=== PATIENT | female | born 1970 | race Caucasian/White ===

== ENCOUNTER 2020-07-31 13:49 | Emergency (ER) | payer OTHER ==
--- OUTSIDE RECORDS SUMMARY | 2020-07-31 13:53 | XMS REPORT | Continuity of Care Document ---
:1970 Author Organization [facility] t Address [address] [place] [address] Care Team Providers Name Role Phone Lisset Jaffe MD Primary Care Physician Lisset Jaffe MD Attending Clinician Marge Wu MD Attending Clinician Emma DIXON Attending Clinician Junior Bartlett Attending Clinician Salvador Johnston Jr Attending Clinician Payers Payer Name Policy Type Policy Effective Date Expiration Date Sour Number CIGNACIGNA OPEN [id number] 2020 [place] ACCESS/NETWORKxx 00:00:00 Methodis t [id number] 1-[id number] Problems Condition Condition Condition Status Onset Resolution Last Treating Co mments Source Name Details Category Date Date Treatment Clinician Date Z41.1 Diagnosis Active 2018-05-15 Mem oria 2-26 11:27:00 l Z41.1 00:00: Hai 00 Active 05/08/2018 [facility] Anxiety Anxiety Disease Active [place] 7 Methodi 00:00: st 00 Palpitatio Palpitatio Disease Active H chiquita ns ns 3-22 Methodi 00:00: st 00 Hair loss Hair loss Disease Active Shlomo ston 3-22 Methodi 00:00: st 00 Generalize Generalize Disease Active H chiquita d d 1-19 Methodi abdominal abdominal 00:00: st cramping cramping 00 Anxiety Anxiety Disease Active [place] and and 03-31 Methodi depression depression 00:00: st 00 Other Other Disease Active [place] insomnia insomnia 03-31 Method i 00:00: st 00 Migraine Migraine Disease Active [place] without without 03-31 Methodi aura and aura and 00:00: st without without 00 status status migrainosu migrainosu s, not s, not intractabl intractabl e e Atypical Atypical Disease Active [place] chest pain chest pain 10-13 Me thodi 00:00: st 00 Amenorrhea Amenorrhea Disease Active [place] 10-13 Methodi 00:00: st 00 Muscle Muscle Disease Active [place] spasm spasm 10-13 Methodi 00:00: st 00 Ectopic Problem Resolve 2020-05-10 Mem oria d 23:03:26 l (disorder) Ectopic Her lazo (disorder) Resolved Problem 05/10/2020 [facility] Acute Problem Active 2018-05-17 Memor ia insomnia 23:46:05 l Acute [place] insomnia Active Problem 05/17/2018 [facility] Hypothyroi Problem Active 2018-05-17 M emoria dism 23:46:05 l (disorder) Maximino n Hypothyroi dism (disorder) Active Problem 05/17/2018 [facility] Cervical Problem Active 2020-05-10 Mem oria disc 23:03:26 l disorder Cervical Herm maxim (disorder) disc disorder (disorder) Active Problem 05/10/2020 from traum 2013 [facility] Gastroesop Problem Active 2020-05-10 M emoria hageal 23:03:26 l reflux Hai disease Gastroesop (disorder) hageal reflux disease (disorder) Active Problem 05/10/2020 [facility] Idiopathic Problem Active 2020-05-10 M emoria atrophic 23:03:26 l hypothyroi Maximino n dism Idiopathic (disorder) atrophic hypothyroi dism (disorder) Active Problem 05/10/2020 [facility] Primary Problem Active 2020-05-10 Ronald constance insomnia 23:03:26 l (disorder) Primary Her lazo insomnia (disorder) Active Problem 05/10/2020 [facility] Allergies, Adverse Reactions, Alerts Allergy Allergy Status Severity Reaction(s) Onset Inactive Treating Comm ents Source Name Type Date Date Clinician NKFA NKFA Active Memoria l Hai No Known No Known Active Memori a Medicati Medicati l on on Haimaxim Cristina s s Family History Family Member Diagnosis Comments Start Date Stop Date Source Natural father Diabetes [place] [facility] Natural father Heart attack [place] Denominational Natural father Hypertension [place] Denominational Natural father Hypothyroidism [place] Natural mother COPD [place] [facility] Natural mother Heart attack [place] [facility]ational Natural mother Hypertension [facility] Social History Social Habit Start Date Stop Date Quantity Comments Source Exposure to Not sure [place] Metho dist SARS-CoV-2 (event) Tobacco use and 2020-06-17 2020-06-17 Never used Kamlesh Day ethodist exposure 00:00:00 00:00:00 Alcohol intake 2020-06-17 2020-06-17 Current drinker [place] Denominational 00:00:00 00:00:00 of alcohol (finding) Social History 2018-05-09 2018-05-09 [facility] Nadja jayant 17:29:37 17:29:37 Alcohol Comment 2016-09-28 2016-09-28 Soc Kamlesh Day ethodist 00:00:00 00:00:00 Sex [birth year] F Kamlesh Day ethodist 00:00:00 00:00:00 Smoking Status Start Date Stop Date Source Never smoker [place] [facility] Medications Ordered Filled Start Stop Current Ordering Indication Dosage Frequency Signature Comments Components Source Medication Medication Date Date Medication? Clinician (SIG) Name Name terbinafine 2020- Yes Fungal 250mg QD Take 1 [place] HCL 5-11 06-10 infection tablet Methodi (LamiSIL) 00:00: 23:59 ([address] 250 mg 00 :00 total) by tablet mouth daily for 30 days. traZODone Yes Primary 100mg QD Take 1 [place] (DESYREL) 4-26 insomnia tablet Meth joy 100 MG 00:00: ([address] tablet 00 total) by mouth nightly. QUEtiapine Yes 25mg QD Take 1 [place] (SEROquel) 4-26 tablet (25 Met hodi 25 MG 00:00: mg total) st tablet 00 by mouth nightly. iron fum,ps 2021-0 Yes Iron 1{capsu QD Take 1 H chiquita cmplx-vit 4-26 deficiency le} capsule by Methodi C-niacin 00:00: mouth st (Integra) 00 daily. 125-40-3 mg capsule ibuprofen 2020- No 400mg Q6H Take 400 [place] (ADVIL) 400 06-17- mg by Method i MG tablet 11:18: 00:[address] 22 :00 every 6 (six) hours as needed for mild pain. mv,Ca,min/i Yes Take by Shlomo perez rita/FA/guar 06-17 mouth. Method i nata/caff 10:57: st (ONE-A-DAY 04 WOMEN'S ACTIVE ORAL) clotrimazol Yes Rash APPLY TO Hugh nixon e-betametha 06-17 AFFECTED Meth joy sone 00:00: AREA TWICE st (LOTRISONE) 00 A DAY 1-0.05 % cream varicella-z 2020- No Encounter .5mL Inject 0.5 [place] nikhil 06-17 for mL into Methodi [id number], 00:00: 23:[address] PF, 00 :00 n shoulder, (Shingrix, thigh, or PF,) 50 buttocks mcg/0.5 mL once for 1 suspension dose. for reconstitut ion IM injection clotrimazol 2020- No Rash APPLY TO [place] e-betametha 06-02 AFFECTED Met hodi sone 00:00: 00:[address] (LOTRISONE) 00 :00 A DAY 1-0.05 % cream acyclovir 2020- No 800mg Q.5D Take 800 Ho huss[place] (ZOVIRAX) 3- 03-17 mg by Methodi 800 MG 12:07: 00:[address] tablet 03 :00 (two) times a day. lamoTRIgine 2021- Yes Mood 25mg QD Take 1 Shlomo perez (LaMICtaL) 3-17 03-17 disturbance tablet (25 Methodi 25 MG 00:00: 23:59 mg total) st tablet 00 :00 by mouth daily. pregabalin 2020- Yes Nerve pain 75mg QD Take 1 Kamlesh (Lyrica) 75 05-27-15 capsule Meth joy MG capsule 00:00: 23:59 ([address] 00 :00 total) by mouth nightly for 90 days. valACYclovi 2020- No Rash 1000mg QD Take 1 H chiquita gay (Valtrex) 05-27-07 tablet Metho di 1000 MG 00:00: 00:00 (1,[address] tablet 00 :00 total) by mouth daily for 90 days. doxycycline 2020- No Rash 100mg Q.5D Take 1 Hugh nixon (VIBRAMYCIN 05-27 capsule Meth joy ) 100 MG 00:00: 23:59 ([address] capsule 00 :00 total) by mouth 2 (two) times a day for 10 days. clotrimazol 2020- No Rash Q.5D Apply [facility] e-betametha 05-27 topically Ga tanner cruze 00:00: 00:00 2 (two) st (Lotrisone) 00 :00 times a 1-0.05 % day. cream tobramycin- 2020- No Abrasion of 1[drp] Q.2D Administer [place] dexamethaso 05-27 right 1 drop to Shay jacobs 00:00: 23:[address] (TOBRADEX) 00 :00 , initial eye every 0.3-0.1 % encounter 4 (four) ophthalmic hours solution while awake for 5 days. ibuprofen Yes TAKE 1 Raynato n (ADVIL) 600 3-12 TABLET Method i MG tablet 00:00: (ORAL) 3 st 00 TIMES PER DAY NEEDED FOR PAIN triamcinolo 2020- No Irritant Q.5D Apply [place] ne 05-12 contact topically Method i (KENALOG) 00:00: 00:00 dermatitis, 2 (two) st 0.025 % 00 :00 unspecified times a cream trigger day for 14 days. Integra 2020- No Iron TAKE 1 [place] 125-40-3 mg 03-27 deficiency CAPSULE BY Methodi capsule 00:00: 00:[address] 00 :00 EVERY DAY Integra 2020- No Iron TAKE 1 [place] 125-40-3 mg 09-15 deficiency CAPSULE BY Methodi capsule 00:00: 00:[address] 00 :00 DAILY FOR 90 DAYS. levothyroxi Yes 50 Memori a ne 50 mcg 2-21 microgram l (0.05 mg) 19:37: = 1 tab, Herm maxim oral tablet 00 PO, QAM, taking with plain water on empty stomach. wait 30 minutes before any other food, drinks, or pills, # 90 tab, 4 Refill(s), Pharmacy: [facility] #[id number] Trazodone 0 Yes 100 mg = 1 Me moria Hydrochlori 2-21 tab, PO, l de 100 MG 19:37: Bedtime, Herm maxim Oral Tablet 00 for sleep, # 90 tab, 4 Refill(s), Pharmacy: [facility] #[id number] QUEtiapine Yes 25 mg = 1 Me moria 25 mg oral 2-21 tab, PO, l tablet 19:37: Bedtime, # Cecily nn 00 90 tab, 4 Refill(s), Pharmacy: [facility] #[id number] 1.5 ML Yes SUB-Q, Memoria fremanezuma 2-21 qMonth, l b-vfrm 150 19:32: per neuro, H ermann MG/ML 00 0 Prefilled Refill(s) Syringe [Ajovy] QUEtiapine 2018-03- No TAKE 1 Rayna murguia (SEROquel) 04-28 TABLET BY Met hodi 25 MG 00:00: 00:[address] tablet 00 :00 NIGHT fremanezuma 2019- No Migraine 225mg Q30D Inject 225 [place] b-vfrm 12-03 without mg under Metho di (AJOVY) 225 00:00: 23:[address] mg/1.5 mL 00 :00 without every 30 syringe status (thirty) migrainosus days. , not intractable traZODone 2020- No Primary TAKE 1 Hugh nixon (DESYREL) 11-26 insomnia TABLET Met hodi 100 MG 00:00: 00:00 ([address] tablet 00 :00 TOTAL) BY MOUTH NIGHTLY INTEGRA 2019- No Iron TAKE 1 [place] 125-40-3 mg 11-26 deficiency CAPSULE BY Methodi capsule 00:00: 00:[address] 00 :00 DAILY FOR 90 DAYS. levothyroxi Yes Other TAKE 1 Shlomo perez ne 7 specified TABLET BY Kevin jang (SYNTHROID, 00:00: hypothyroid MOUTH st LEVOXYL) 50 00 ism EVERY DAY mcg tablet IBU 800 mg No [place] tablet 08-01 Methodi 00:00: 00:00 st 00 :00 neostigmine No Route: IV, Memoria (ANES) 3- Drug form: l 21:48: INJ, ONCE, Stop date: 05/15/18 15:48:00 [employer] glycopyrrol No Route: IV, Memoria ate (ANES) - Drug form: l 21:48: INJ, ONCE, Stop date: 05/15/18 15:48:00 [employer] ondansetron No Route: IV, Memoria (ANES) 05-15 Drug form: l 21:42: INJ, ONCE, Stop date: 05/15/18 15:42:00 [employer] Lactated No Route: IV, Mem oria Ringers -05 Total l Injection 20:53: Volume: Cecily nn IV (ANES) 00 1,000, 1000 mL Start date: 05/15/18 14:53:00 [employer], Stop date: 05/15/18 15:53:00 [employer] propofol No Route: IV, Mem oria (ANES) 05-15 Drug form: l 20:06: INJ, ONCE, Stop date: 05/15/18 14:06:00 [employer] Ondansetron No Notes: Ronald constance 3-05 (Same as: l 19:45: Zofran) MEDICATION WASTE Product Size: 4 mg Product Wasted: _0__ mg Promethazin No Notes: Do M emoria e 3-05 not give l 19:45: IV push. (Same as: Phenergan) Naloxone No Notes: Memoria 3-05 Same as l 19:45: Narcan Flumazenil No Notes: Memor ia -05 (Same as: l 19:45: Romazicon) Hydromorpho No Notes: Ronald constance ne 05-15 Same as: l 19:45: Dilaudid Meperidine No Notes: Memor ia -05 (Same as: l 19:45: Demerol) "Use Precaution in Elderly, Seizure disorders, and Renal impairment " Morphine No Notes: Memoria 3-05 (Same l 19:45: as:MORPhin e Sulfate) acetaminoph No Route: IV, Memoria en (ANES) 05-15 Drug form: l 10 mg 19:37: INJ, Start Maximino n 00 date: 05/15/18 13:37:00 [employer], Stop date: 05/15/18 14:37:00 [employer] Dilaudid No Route: IV, Mem oria (ANES) 05-15 Drug form: l 19:36: INJ, ONCE, Stop date: 05/15/18 13:36:00 [employer] dexamethaso No Route: IV, Memoria ne (ANES) 05-15 Drug form: l 19:36: INJ, ONCE, [place] 00 Stop date: 05/15/18 13:36:00 [employer] midazolam No Route: IV, Me moria (ANES) 05-15 Drug form: l 19:31: SOLN, [place] 00 ONCE, Stop date: 05/15/18 13:31:00 [employer] ceFAZolin No Route: IV, Me moria (ANES) 05-15 Drug form: l 19:31: INJ, ONCE, [place] Stop date: 05/15/18 13:31:00 [employer] rocuronium No Route: IV, M emoria (ANES) 05-15 Drug form: l 19:31: INJ, ONCE, Hai Stop date: 05/15/18 13:31:00 [employer] lidocaine No Route: IV, Me moria (ANES) 05-15 Drug form: l 19:31: INJ, ONCE, Hai Stop date: 05/15/18 13:31:00 [employer] acetaminoph No Route: IV, Memoria en (ANES) 3-05 Drug form: l 19:31: INJ, ONCE, Stop date: 05/15/18 13:31:00 [employer] fentaNYL No Route: IV, Mem oria (ANES) 3-05 Drug form: l 19:31: INJ, ONCE, Stop date: 05/15/18 13:31:00 [employer] propofol No Route: IV, Mem oria (ANES) 10 05-15 Drug form: l mg 18:55: INJ, Start date: 05/15/18 12:55:00 [employer], Stop date: 05/15/18 13:55:00 [employer] Lactated No Route: IV, Mem oria Ringers 3-05 Total l Injection 18:45: Volume: Cecily nn IV (ANES) 00 800, Start 800 mL date: 05/15/18 12:45:00 [employer], Stop date: 05/15/18 13:45:00 [employer] Lactated No 1,000 mL, Ronald constance Ringers 3-05 Rate: 125 l Injection 12:00: ml/hr, Maximino n IV 1,000 mL 00 Infuse over: 8 hr, Route: IV, Dosing Weight 66.091 kg, Total Volume: 1,000, Start date: 05/15/18 6:00:00 [employer], Duration: 30 day, Stop date: 06/14/18 5:59:00 CDT, 1.76, m2 BD Normal No Notes: Memori a Saline 3-05 (Same as: l Flush 12:00: BD Posiflush) ceFAZolin + No Notes: Ronald constance sterile 3-05 (Same As: l water 20 mL 12:00: Ancef, Kefzol) MEDICATION WASTE Product Size: 1000 mg Product Wasted: ___ mg Lidocaine No Notes: Memori a 3-05 Ingredient l 11:30: s: 2 ml lidocaine 1% inj , 0.2ml sodium bicarbonat e 8.4% inj total volume = 2.2ml Refrigerat e: 14 days Room temp: 7 days Calcium No 1,000 mL, Memor ia Chloride 3-05 Rate: 25 l 0.0014 11:30: ml/hr, MEQ/ML / 00 Infuse Potassium over: 40 Chloride hr, Route: 0.004 IV, Dosing MEQ/ML / Weight Sodium 66.091 kg, Chloride Total 0.103 Volume: MEQ/ML / 1,000, Sodium Start Lactate date: 0.05/15/18 MEQ/ML 5:30:00 Injectable [employer], Solution Duration: 30 day, Stop date: 06/14/18 5:29:00 CDT, 1.76, m2 ferrous 2019-0 Yes PO, Daily, Ronald constance sulfate 2-27 0 l 17:14: Refill(s) stool 2019-0 Yes stool Memoria softener 2-27 softener, l 17:06: Daily, Hai 00 Refill(s) 0 Aspirin 2019-0 Yes 81 mg, Memoria 2-27 Daily, 0 l 17:06: Refill(s) Vitamin D3 2019-0 Yes Daily, 0 Mem oria 2-27 Refill(s) l 17:05: [place] 00 Folic Acid 2019-0 Yes PO, Daily, M emoria 0.4 MG Oral 2-27 # 100 tab, l Tablet 17:05: 0 Hai 00 Refill(s) biotin 2019-0 Yes CHEW, Memoria 2-27 Daily, 0 l 17:04: Refill(s) multivitami 2019-0 Yes Daily, 0 Me moria n 2-27 Refill(s) l 17:04: [place] 00 dicyclomine 2019-0 Yes 10 mg = 1 M emoria 10 mg oral 2-27 cap, PO, l capsule 17:03: BID, # 40 Cecily nn 00 cap, 0 Refill(s) venlafaxine 2019-0 Yes 37.5 mg = M emoria 37.5 MG 2-27 1 tab, PO, l Oral Tablet 17:03: BID, # 60 H ermann 00 tab, 0 Refill(s) levothyroxi 2019-0 Yes 50 Memori a ne 50 mcg 2-27 microgram l (0.05 mg) 17:03: = 1 tab, Herm maxim oral tablet 00 PO, Daily, # 30 tab, 0 Refill(s) Trazodone 2019- Yes 100 mg = 1 Me carmen Hydrochlori 2-27 tab, PO, l de 100 MG 17:03: Bedtime, # He rmann Oral Tablet 00 90 tab, 0 Refill(s) Immunizations Ordered Immunization Filled Immunization Date Status Commen ts Source Name Name PFIZER COVID-19 MRNA 2020-06-30 Completed [place] VACCINATION 00:00:00 Denominational PFIZER COVID-19 MRNA 2020-06-09 Completed [place] VACCINATION 00:00:00 Denominational Vital Signs Vital Name Observation Time Observation Value Comments Source Systolic blood 2020-06-17 10:53:00 112 mm[Hg] Rayn[place] n Denominational pressure Diastolic blood 2020-06-17 10:53:00 76 mm[Hg] Artis on Denominational pressure Heart rate 2020-06-17 10:53:00 62 /min [place] [facility] Respiratory rate 2020-06-17 10:53:00 22 /min [facility]ational Body height 2020-06-17 10:53:00 170.2 cm [place] [facility] Body weight 2020-06-17 10:53:00 65.772 kg [place] [facility] BMI 2020-06-17 10:53:00 22.71 kg/m2 [place] [facility]ational Oxygen saturation in 2020-06-17 10:53:00 100 /min [facility]ter[facility] blood by Pulse oximetry Body temperature 2020-05-27 11:39:00 36.67 Catia [facility] blade Denominational Systolic (mm Hg) 2019-05-03 19:11:00 Ronald shelia [place] Diastolic (mm Hg) 2019-05-03 19:11:00 Mem orial Hai Heart Rate 2019-05-03 19:11:00 [facility] Temperature Oral (F) 2019-05-03 19:11:00 [facility].2 [facility] Height 2019-05-03 19:11:00 166.37 cm [facility] Weight 2019-05-03 19:11:00 [facility] Hai BMI Calculated 2019-05-03 19:11:00 Memori al Hai Respitory Rate 2018-05-16 01:00:00 Memori al [place] Diastolic (mm Hg) 2018-05-16 00:45:00 Mem orial Hai Respitory Rate 2018-05-16 00:45:00 Memori al Hai Systolic (mm Hg) 2018-05-16 00:45:00 Roanld rial Hai Respitory Rate 2018-05-16 00:30:00 Memori al [place] Systolic (mm Hg) 2018-05-16 00:30:00 Ronald rial Hai Diastolic (mm Hg) 2018-05-16 00:30:00 Mem orial Hai Systolic (mm Hg) 2018-05-16 00:15:00 Ronald rial Hai Diastolic (mm Hg) 2018-05-16 00:15:00 Mem orial Hai Heart Rate 2018-05-09 17:49:00 [facility] BMI Calculated 2018-05-09 16:58:00 [facility] al Hai Weight 2018-05-09 16:58:00 [facility] Height 2018-05-09 16:58:00 166.37 cm [facility] Procedures Procedure Date / Time Performing Clinician Source Performed TOTAL IRON BINDING CAPACITY 2020-06-17 11:35:00 Crystal Jaffe HEMOGLOBINOPATHY EVALUATION 2020-06-17 11:35:00 Crystal Jaffe FOLATE LEVEL 2020-06-17 11:35:00 Crystal Jaffe VITAMIN B12 LEVEL 2020-06-17 11:35:00 Crystal Jaffe n Denominational CBC WITH PLATELET AND 2020-06-17 11:35:00 Crystal Jaffe DIFFERENTIAL LIPID PANEL WITH REFLEX TO 2020-06-17 11:35:00 Crystal Jaffe DIRECT LDL COMPREHENSIVE METABOLIC 2020-06-17 11:35:00 Crystal Jaffe PANEL THYROID STIMULATING HORMONE 2020-06-17 11:35:00 Crystal Jaffe URINALYSIS, COMPLETE, WITH 2020-06-17 11:35:00 Crystal Jaffe REFLEX TO CULTURE VITAMIN D 25 HYDROXY LEVEL 2020-06-17 11:35:00 Crystal Jaffe Open reversal of tubal 1997-03-13 00:00:00 Lana mccann [place] ligation Tubal ligation 1990-03-13 00:00:00 [facility] Her lazo Breast implantation [facility] section<sup>1</sup> Laparoscopy<sup>2</sup> [facility] Plan of Care Planned Activity Planned Date Details Comments Source Future Scheduled 2020-10-11 INFLUENZA VACCINE [place] [facility] Test 00:00:00 [code = INFLUENZA VACCINE] Future Scheduled 2020-02-[address] [facility] thodist Test 00:00:00 SCREENING [code = BREAST CANCER SCREENING] Future Scheduled 2019-10-17 COLONOSCOPY SCREENING [place] [facility] Test 00:00:00 [code = COLONOSCOPY SCREENING] Future Scheduled 2019-10-17 SHINGLES VACCINES [place] [facility] Test 00:00:00 (#1) [code = SHINGLES VACCINES (#1)] Future Scheduled [address] [facility] thodist Test 00:00:00 malignant neoplasm of cervix (procedure) [code = 700755768] Future Scheduled 1987-10-17 Hepatitis C screening [place] [facility] Test 00:00:00 (procedure) [code = 044132140] Encounters Start End Encounter Admission Attending Care Care Encounter Source Date/Time Date/Time Type Type Clinicians Facility Department ID 2020-06-30 2020-06-30 Outpatient FREDDIE, [facility] [id number] [place] 00:00:00 00:00:00 MELO 535 Me thodi 2020-06-17 2020-06-17 Outpatient COSMORISHI, [facility] [id number] [place] 00:00:00 00:00:00 MANAR [address] 2020-06-09 2020-06-09 Outpatient [facility] [id number] [place] 00:00:00 00:00:[address] 2020-05-27 2020-05-27 Outpatient [place], [facility] [id number] [place] 00:00:00 00:00:00 MANAR [address] 2020-05-12 2020-05-12 Outpatient [facility] [id number] [place] 00:00:00 00:00:[address] 2020-05-08 2020-05-08 [id number] 15:30:00 15:30:00 Norberto 03 2019-08-26 2019-08-26 Outpatient Junior [facility] [id number] 13:30:00 13:30:00 Norberto 2019-08-26 2019-08-26 Outpatient Junior [facility] [id number] 11:00:00 11:00:00 Norberto 2019-06-27 2019-06-28 Outpatient [facility] [id number] 16:51:36 23:59:59 00 2019-05-03 2019-05-03 Outpatient Junior [facility] [id number] 13:00:00 23:59:59 Norberto 2018-05-15 2018-05-15 Outpatient [place]ick[place] [id number] 11:14:00 19:25:00 John Franco 00 Results Test Description Test Time Test Comments Results Result Comments Source Hemoglobinopathy evaluation 2020-06-18 15:28:00 Test Item Value Reference Range Interpretation Comme nts RBC (test code = 789-8) 4.44 See_Comment [Au tomated message] The system which ge nerated this result tra nsmitted reference range : 3.80 - 5.10 Million/uL . The reference range was not used to interpr et this result as normal/abnormal . HGB (test code = 718-7) 14.3 g/dL 11.7-15.5 HCT (test code = 4544-3) 45.1 % 35.0-45.0 H MCV (test code = 787-2) 101.6 fL 80.0-100.0 H MCH (test code = 785-6) 32.2 pg 27.0-33.0 RDW (test code = 788-0) 15.7 % 11.0-15.0 H Hemoglobin A (test code 97.4 % >96.0 = 4546-8) Hemoglobin F (test code <1.0 See_Comment [Au tomated message] The = 4576-5) system which ge nerated this result tra nsmitted reference range : <2.0 %. The reference r ashley was not used to int erpret this result as normal/abnormal . Hemoglobin A2 (test code 2.6 % 2.2-3.2 = 4551-8) Interpretation (test Normal phenotype.Due to code = 92417-6) increased RB C indices, consider B-12 a nd Folate assays ifclinic ally indicated. SHANNAN (test code = SHANNAN) FASTING:YES FASTING: YES RAC (test code = RAC) Performing Organization Information: Site ID: [id number] [facility]: [facility] Address: [address] [place] [address] SAVANA Morrison [id number] Director: Dr. Mateusz Valero Lab Interpretation (test Abnormal code = 34189-0) [facility] with platelet and [id number] 15:28:00 Test Item Value Reference Range Interpretation Comments WBC (test code = 5.3 See_Comment [Automated 5491-2) message] The system which generated this result transmitted reference range : 3.8 - 10.8 Thousand/uL. Th e reference range was not used to interpret this result as normal/abnormal . RBC (test code = 4.46 See_Comment [Automated 429-8) message] The system which generated this result transmitted reference range : 3.80 - 5.10 Million/uL. The reference range was not used to interpret this result as normal/abnormal . HGB (test code = 14.2 g/dL 11.7-15.5 718-7) HCT (test code = 42.5 % 35.0-45.0 4544-3) MCV (test code = 95.3 fL 80.0-100.0 787-2) MCH (test code = 31.8 pg 27.0-33.0 785-6) MCHC (test code = 33.4 g/dL 32.0-36.0 786-4) RDW (test code = 13.6 % 11.0-15.0 788-0) Platelet count 227 See_Comment [Automated (test code = message] The 777-3) system which generated this result transmitted reference range : 140 - 400 Thousand/uL. Th e reference range was not used to interpret this result as normal/abnormal . MPV (test code = 11.6 fL 7.5-12.5 776-5) Neutrophils, 2889 See_Comment [Automated absolute (test message] The code = 391-8) system which generated this result transmitted reference range : 1,500 - 7,800 cells/uL. The reference range was not used to interpret this result as normal/abnormal . Lymphocytes, 1908 See_Comment [Automated absolute (test message] The code = 731-0) system which generated this result transmitted reference range : 850 - 3,900 cells/uL. The reference range was not used to interpret this result as normal/abnormal . Monocytes, 313 See_Comment [Automated absolute (test message] The code = 742-7) system which generated this result transmitted reference range : 200 - 950 cells/uL. The reference range was not used to interpret this result as normal/abnormal . Eosinophils, 133 See_Comment [Automated absolute (test message] The code = 711-2) system which generated this result transmitted reference range : 15 - 500 cells/uL. The reference range was not used to interpret this result as normal/abnormal . Basophils, 58 See_Comment [Automated absolute (test message] The code = 704-7) system which generated this result transmitted reference range : 0 - 200 cells/u L. The reference range was not used to interpr et this result as normal/abnormal . Neutrophils (test 54.5 % code = 770-8) Lymphocytes (test 36.0 % code = 736-9) Monocytes (test 5.9 % code = 5905-5) Eosinophils (test 2.5 % code = 713-8) Basophils + RC 1.1 % (test code = 706-2) SHANNAN (test code = FASTING:YES SHANNAN) FASTING: YES RAC (test code = Performing RAC) Organization Information: Site ID: RGA [facility] Address: [address] [place] [id number] Director: Matesuz RoachVitamin D 25 hydroxy [id number] 15:28:00 Test Item Value Reference Range Interpretation Comments Vitamin D, 65 ng/mL 30-100 Vitamin D Statu s 25-hydroxy 25-OH Nishi min (test code = D: Deficiency: 1989-) < 20 ng/mLInsufficie ncy: 20 - 29 ng/mLOptimal: > or = 30 ng/mL For 25-OH Vitamin D testi ng on patients on D2-supplementat ion and patients fo r whom quantitati on of D2 and D3 fractions is required, the QuestAssureD(TM )25- OH VIT D, (D2,D 3), LC/MS/MS is recommended: or casey code 78953 (patients >2yrs).See Note 1 Note 1 For additional information, pl ease refer to http://educatio n.Qu estCohumans. com/ faq/CVI418 (Thi s link is being provided for informational/e duca tional purposes only.) SHANNAN (test code FASTING:YES FASTING: = SHANNAN) YES RAC (test code Performing = RAC) Organization Information: Site ID: [facility] Name: [facility] Address: [address] [place], [place] [id number] Director: Mateusz Ponceridge [place] MethodistTotal iron binding [id number] 15:28:00 Test Item Value Reference Range Interpretation Comments Iron level (test 61 See_Comment [Automated code = 2498-4) message] The system which generated this result transmit vanessa reference range : 45 - 160 mcg/dL . The reference range was not u sed to interpret th is result as normal/abnormal . Iron binding 253 See_Comment [Automated capacity (test message] The code = 2500-7) system which generated this result transmit vanessa reference range : 250 - 450 mcg/d L (calc). The reference range was not used to interpret this result as normal/abnormal . Iron saturation 24 See_Comment [Automated (test code = message] The 2502-3) system which generated this result transmit vanessa reference range : 16 - 45 % (calc ). The reference range was not u sed to interpret th is result as normal/abnormal . SHANNAN (test code = FASTING:YES SHANNAN) FASTING: YES RAC (test code = Performing RAC) Organization Information: Site ID: [facility] Name: [facility] Address: [address] [place] [phone] Director: Mateusz PonceRobert Breck [facility] MethodistLIPID PANEL WITH REFLEX TO DIRECT [id number] 15:28:00 Test Item Value Reference Range Interpretation Comments Cholesterol, total 165 mg/dL <200 (test code = 2093-3) HDL cholesterol 49 mg/dL See_Comment L [Automated (test code = 5-9) message ] The system which generated this result transmitted reference range : > OR = 50. The reference range was not used to interpret this result as normal/abnormal . Triglycerides (test 62 mg/dL <150 code = 2571-8) LDL cholesterol 102 mg/dL (calc) H Reference ra nge: calculated (test <100 Desira ble code = 20724-8) range <100 m g/dL for primary prevention; <7 0 mg/dL for patients with C HD or diabetic patients with > or = 2 CHD risk factors. LDL-C is now calculated using the Abel calculation, which is a validated novel method providin g better accuracy than the Friedewald equation in the estimation of LDL-C. Iglesia S S et al. HARI. 2013;310(19): 5191-6288 (http://educati on .QuNano .com/faq/JNB519 ) Cholesterol/HDL 3.4 See_Comment [Automated ratio (test code = message] The 9830-1) system which generated this result transmitted reference range : <5.0 (calc). Th e reference range was not used to interpret this result as normal/abnormal . Non-HDL cholesterol 116 See_Comment For stiven ents with (test code = diabetes plus 1 75063-4) major ASCVD ris k factor, treatin g to a non-HDL-C goal of <100 mg/dL (LDL-C of <70 mg/dL) is considered a therapeutic option. [Automated message] The system which generated this result transmitted reference range : <130 mg/dL (calc). The reference range was not used to interpret this result as normal/abnormal . SHANNAN (test code = FASTING:YES SHANNAN) FASTING: YES RAC (test code = Performing RAC) Organization Information: Site ID: RGA Name: [facility] Address: [address] [place] [phone] Director: Mateusz Valero Lab Interpretation Abnormal (test code = 00354-0) [place] MethodistURINALYSIS, COMPLETE, WITH REFLEX TO [id number] 15:28:00 Test Item Value Reference Range Interpretation Comments Color, UA (test YELLOW YELLOW code = 5778-6) Appearance (test CLEAR CLEAR code = 5767-9) Specific gravity, 1.016 1.001-1.035 urine (test code = 5811-5) pH, urine (test < OR = 5.0 5.0-8.0 code = 5803-2) Glucose, urine NEGATIVE NEGATIVE (test code = 57542-8) Bilirubin, UA NEGATIVE NEGATIVE (test code = 5770-3) Ketones, UA (test NEGATIVE NEGATIVE code = 2514-8) Occult blood, NEGATIVE NEGATIVE urine (test code = 5794-3) Protein, UA (test NEGATIVE NEGATIVE code = 79902-0) Nitrite, UA (test NEGATIVE NEGATIVE code = 5802-4) Leukocyte NEGATIVE NEGATIVE esterase, UA (test code = 5799-2) WBC, UA (test NONE SEEN See_Comment [Automated code = 5821-4) message] The system which generated this result transmit vanessa reference range : < OR = 5 /HPF. Th e reference range was not used to interpret this result as normal/abnormal . RBC, UA (test NONE SEEN See_Comment [Automated code = 26896-4) message] The system which generated this result transmit vanessa reference range : < OR = 2 /HPF. Th e reference range was not used to interpret this result as normal/abnormal . Squamous 0-5 See_Comment [Automated epithelial cells, message] T he UA (test code = system which 62938-8) generated this result transmit vanessa reference range : < OR = 5 /HPF. Th e reference range was not used to interpret this result as normal/abnormal . Bacteria, UA NONE SEEN NONE SEEN /HPF (test code = 5769-5) Hyaline casts, UA NONE SEEN NONE SEEN /LPF (test code = 5796-8) Reflex (test code NO CULTURE = 630-4) INDICATED SHANNAN (test code = FASTING:YES SHANNAN) FASTING: YES RAC (test code = Performing RAC) Organization Information: Site ID: RGA Name: [facility] Address: [address] [place] [phone] Director: Mateusz Valero [place] MethodistComprehensive metabolic [id number] 15:28:00 Test Item Value Reference Interpretation Comments Range Glucose (test code 85 mg/dL 65-99 Fasting = 2345-7) reference inter raina BUN (test code = 13 mg/dL 7-25 3094-0) Creatinine (test 0.84 mg/dL 0.50-1.05 For patient s >49 code = 2160-0) years of age, the reference limit for Creatinine is approximately 1 3% higher for peopleidentifie d as -Tata n. EGFR Non-Afr. 81 See_Comment [Automated me ssage] Niuean (test code The syst em which = 2775) generated this result transmit vanessa reference range : > OR = 60 mL/min/1.73m2. The reference range was not used to interpret this result as normal/abnormal . EGFR 94 See_Comment [Automated mes vinay] Niuean (test code The syst em which = 80748-9) generated this result transmit vanessa reference range : > OR = 60 mL/min/1.73m2. The reference range was not used to interpret this result as normal/abnormal . BUN/creatinine NOT APPLICABLE See_Comment [Automated message] ratio (test code = The [employer] m which 3097-3) generated this result transmit vanessa reference range : 6 - 22 (calc). The reference range was not used to interpret this result as normal/abnormal . Sodium (test code = 139 mmol/L 893-647 3083-2) Potassium (test 4.2 mmol/L 3.5-5.3 code = 2823-3) Chloride (test code 105 mmol/L 98-110 = 2075-0) CO2 (test code = 29 mmol/L 20-32 2027-9) Calcium (test code 9.1 mg/dL 8.6-10.4 = 70713-6) Protein (test code 6.6 g/dL 6.1-8.1 = 2885-2) Albumin, S (test 4.0 g/dL 3.6-5.1 code = 1751-7) Globulin, total 2.6 See_Comment [Automated message] (test code = The system [employer] h 72484-8) generated this result transmit vanessa reference range : 1.9 - 3.7 g/dL (yunier c). The reference r ashley was not used to interpret this result as normal/abnormal . Albumin/globulin 1.5 See_Comment [Automated message] ratio (test code = [facility] which 1759-0) generated this result transmit vanessa reference range : 1.0 - 2.5 (calc). T he reference range was not used to interpret this result as normal/abnormal . Total bilirubin 0.4 mg/dL 0.2-1.2 (test code = 1974-) Alkaline 30 U/L 37-153 L phosphatase (test code = 6768-6) AST (test code = 13 U/L 10-35 1920-8) ALT (test code = 12 U/L 6-29 1742-6) SHANNAN (test code = FASTING:YES SHANNAN) FASTING: YES RAC (test code = Performing RAC) Organization Information: Site ID: A [facility] Address: [address] [place] [address] Director: Mateusz Valero Lab Interpretation Abnormal (test code = 46020-5) [place] MethodistVitamin B12 [id number] 15:28:00 Test Item Value Reference Range Interpretation Comments Vitamin B12 (test 705 pg/mL 200-1100 code = 2132-9) SHANNAN (test code = FASTING:YES FASTING: YES SHANNAN) RAC (test code = Performing Organization RAC) Information: Site ID: [facility] Name: [facility] Address: [address] [place] [address] Director: Mateusz Valero [place] HarinderistFolate [id number] 15:28:00 Test Item Value Reference Range Interpretation Comments Folate (test 20.4 ng/mL code = 2284-8) Refer ence Range Lo w: <3.4 Borderline: 3.4-5.4 Normal: >5.4 SHANNAN (test code FASTING:YES FASTING: = SHANNAN) YES RAC (test code Performing = RAC) Organization Information: Site ID: A Name: [facility] Address: [address] [place] [address] Director: Mateusz Valero [place] MethodistThyroid stimulating [id number] 15:28:00 Test Item Value Reference Range Interpretation Comments TSH (test code 2.16 mIU/L = 3016-3) Reference Range > or = 20 Years 0.40-4.50 Range s First trimester 0.26-2.66 Second trimeste r 0.55-2.73 Third trimester 0.43-2.91 SHANNAN (test code FASTING:YES FASTING: = SHANNAN) YES RAC (test code Performing = RAC) Organization Information: Site ID: Martin Name: [facility] Address: [address] [place] [address] Director: Mateusz Valero [place] [id number] 18:00:63522Zibkfbcf HermannELECTROLYTES 2018-05-09 18:00:004.3[facility] HtuwcpmFRYGXLMFCF4436-23-07 18:00:000.1[facility] CydliwlIAYSILKQBR4983-60-13 18:00:001.5[facility] PhrdwbdZIDSLIWTRO4429-55-98 18:00:000.1[facility] CvsnrphTCJEJFXLSQ2348-78-27 18:00:000.2[facility] Hai ZTIIBPZRED5299-24-20 18:00:001.5[facility] QziglybQDKGALRTPL0867-10-99 18:00:003.2 [facility] MukodhdPVARNDHSLU4104-90-76 18:00:005.5[facility] HermannHEMATOLOGY 2018-05-09 18:00:0034.4[facility] UzyfirySUJIKDQDAQ4832-85-72 18:00:002.4[facility] YewqdccRQOTSFOUGW0796-07-37 18:00:0055.4[facility] HvfibynEJROROMKDG9019-92-17 18:00:004.06[facility] QqmbqiwNWNNBFQNRD3467-42-93 18:00:0033.8[facility] Hai [id number] 18:00:00 Test Item Value Reference Range Interpretation Comments MCH (test code = MCH) 32.9 pg 27.0-31.0 [facility] CoaxwpaSWKWCPLLDK1780-30-20 18:00:0097.2[facility] HermannHEMATOLOGY 2018-05-09 18:00:009.8[facility] PymnpspUECJDRYKSJ2690-97-01 18:00:90215Hkhtwqfx IhppudhNFNUCRFMVX9403-40-50 18:00:0013.7[facility] UskwxrfSRPTUOPQXC4133-85-63 18:00:004.3[facility] QgosasjBNBEJDZGOC6008-02-40 18:00:0013.3[facility] Hai MPGHAHNGMY5314-82-87 18:00:0039.4[facility] Ahi
[2020-07-31] MEDS ORDERED: KETOROLAC 30 MG/ML INJ ONE (15:33)
[2020-07-31 15:37] LABS: Urine Blood 2+ (Negative); Urine Glucose Negative (Negative); Urine Protein Negative (Negative); Urine pH 5.5 (5.0-7.0)
[2020-07-31 15:47] LABS: Absolute Lymphocytes (CBC) 1.8 K/uL (0.7-4.9); Basophils % 1.2 % (0-1.3); Hematocrit 39.2 % (36.0-45.0); Lymphocytes % 31.4 % (15.3-44.8); MPV 10.2 fL (7.6-11.3); RBC Red Blood Cell Count 4.03 M/uL (3.86-4.86)
[2020-07-31 16:09] LABS: Potassium 3.8 mmol/L (3.5-5.1); Thyroid Stimulating Hormone 2.65 uIU/mL (0.360-3.740)
--- NOTE | 2020-07-31 16:44 | EDPHYS ---
Physician Documentation [facility] Name: Beth Nelson Age: 49 yrs Sex: Female : 1970 Arrival Date: 07/31/2020 Time: 13:55 Bed 23 Private MD: ED Physician Eyal Mcclelland HPI: 07/31 16:19 This 49 yrs old Female presents to ER via Ambulatory with complaints of kb Weakness, Vaginal Bleeding. 16:19 The patient presents with vaginal bleeding that is moderate, heavy, with clots. Onset: kb The symptoms/episode began/occurred 1 month(s) ago. Modifying factors: The symptoms are alleviated by nothing, the symptoms are aggravated by nothing. Associated signs and symptoms: Pertinent positives: vaginal bleeding. Severity of symptoms: At their worst the symptoms were moderate, in the emergency department the symptoms are unchanged. The patient has not experienced similar symptoms in the past. The patient has not recently seen a physician. Pt reports her menstrual cycle started a month ago and hasn't stopped, now she is passing clots. Reports left pelvic pain as well. . 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 - Social history:: Smoking status: Patient denies any tobacco usage or history of. ROS: 16:17 Positive for pelvic pain, vaginal bleeding. kb 16:17 Constitutional: Negative for fever, chills, and weight loss. 16:17 Neuro: Positive for weakness. 16:17 All other systems are negative. Exam: 16:17 Constitutional: This is a well developed, well nourished patient who is awake, alert, kb and in no acute distress. Head/Face: Normocephalic, atraumatic. ENT: Moist Mucous membranes Cardiovascular: Regular rate and rhythm with a normal S1 and S2. No gallops, murmurs, or rubs. No pulse deficits. Respiratory: Respirations even and unlabored. No increased work of breathing, no retractions or nasal flaring. Skin: Warm, dry with normal turgor. Normal color. MS/ Extremity: Pulses equal, no cyanosis. Neurovascular intact. Full, normal range of motion. Neuro: Awake and alert, GCS 15, oriented to person, place, time, and situation. Moves all extremities. Normal gait. Psych: Awake, alert, with orientation to person, place and time. Behavior, mood, and affect are within normal limits. 16:17 Abdomen/GI: Inspection: abdomen appears normal, Bowel sounds: normal, Palpation: soft, in all quadrants, mild abdominal tenderness, in the left lower quadrant. Vital Signs: 14:02 BP 121 / 83; Pulse 63; Resp 18; Temp 98.8; Pulse Ox 100% on R/A; Weight 61.23 kg (R); em Height 5 ft. 6 in. (167.64 cm); Pain 8/10; 15:14 BP 110 / 74 Supine; Pulse 63; jl7 15:14 BP 113 / 82 Sitting; Pulse 65; jl7 15:14 BP 120 / 76 Standing; Pulse 69; jl7 16:19 BP 105 / 75; Pulse 59; Resp 15; Pulse Ox 99% ; jl7 14:02 Body Mass Index 21.79 (61.23 kg, 167.64 cm) em MDM: 14:51 Patient medically screened. kb 16:18 Data reviewed: vital signs, nurses notes. Data interpreted: Pulse oximetry: on room air kb is 100 %. Interpretation: normal. Counseling: I had a detailed discussion with the patient and/or guardian regarding: the historical points, exam findings, and any diagnostic results supporting the discharge/admit diagnosis, lab results, radiology results, the need for outpatient follow up, an OB/Gyne specialist, to return to the emergency department if symptoms worsen or persist or if there are any questions or concerns that arise at home. 07/31 15:13 Order name: CBC with Diff; Complete Time: 15:58 kb 07/31 15:13 Order name: Basic Metabolic Panel; Complete Time: 16:12 kb 07/31 14:50 Order name: US Transvaginal Study (Probe); Complete Time: 16:55 kb 07/31 15:13 Order name: TSH; Complete Time: 16:12 kb 07/31 15:37 Order name: Urine Dipstick-Ancillary; Complete Time: 15:48 EDMS 07/31 15:13 Order name: IV Start; Complete Time: 15:47 kb 07/31 15:13 Order name: Orthostatics; Complete Time: 15:47 kb 07/31 15:13 Order name: Urine Dipstick-Ancillary (obtain specimen); Complete Time: 15:37 kb Administered Medications: 15:30 Drug: TORadol - (ketorolac) 15 mg Route: IVP; Site: right antecubital; jl7 15:45 Follow up: Response: No adverse reaction; Pain is decreased jl7 16:52 Drug: [place] (HYDROcodone-acetaminophen) (7.5 mg-325 mg) 1 tabs Route: PO; jl7 16:52 Follow up: Response: Medication administered at discharge. jl7 Disposition: 18:16 Co-signature as Attending Physician, Eyal Mcclelland MD I agree with the assessment and kdr plan of care. Disposition: 07/31/20 16:43 Discharged to Home. Impression: Abnormal uterine and vaginal bleeding, unspecified, Leiomyoma of uterus. - Condition is Stable. - Discharge Instructions: Uterine Fibroids, Pnuw-th-Jkei, Abnormal Uterine Bleeding, Ancy-vk-Rdhd. - Prescriptions for Diclofenac Sodium 75 mg Oral Tablet, Delayed Release (E.C.) - take 1 tablet by ORAL route 2 times per day As needed; 30 tablet. - Medication Reconciliation Form, Thank You Letter, Antibiotic Education, Prescription Opioid Use form. - Follow up: Emergency Department; When: As needed; Reason: Worsening of condition. Follow up: Private Physician; When: 2 - 3 days; Reason: Recheck today's complaints, Continuance of care, Re-evaluation by your physician. Signatures: Dispatcher [employer] [facility] Carolynn Kiser, SOUMYA-C SOUMYA-Eyal Farley MD MD kdr Munoz, Edgar, RN RN Juan Mascorro RN RN jl7 Corrections: (The following items were deleted from the chart) 16:56 16:43 07/31/2020 16:43 Discharged to Home. Impression: Abnormal uterine and vaginal jl7 bleeding, unspecified; Leiomyoma of uterus. Condition is Stable. Discharge Instructions: Uterine Fibroids, Tozx-gr-Dmiq, Abnormal Uterine Bleeding, Dntt-lj-Uoau. Forms are Medication Reconciliation Form, Thank You Letter, Antibiotic Education, Prescription Opioid Use. Follow up: Emergency Department; When: As needed; Reason: Worsening of condition. Follow up: Private Physician; When: 2 - 3 days; Reason: Recheck today's complaints, Continuance of care, Re-evaluation by your physician. kb
--- NOTE | 2020-07-31 16:44 | ER ---
Nurse's Notes [facility] Name: Beth Nelson Age: 49 yrs Sex: Female : 1970 Arrival Date: 07/31/2020 Time: 13:55 Bed 23 Private MD: Diagnosis: Abnormal uterine and vaginal bleeding, unspecified;Leiomyoma of uterus Presentation: 07/31 14:02 Chief complaint: Patient states: period started about 1 month ago, has not stopped, has em gone through 3 boxes of tampons and 1 box of pads, also reports dizziness and weakness, Hx of anemia, also reports pelvic pain. Coronavirus screen: Client denies travel out of the [place] in the last 14 days. Ebola Screen: Patient negative for fever greater than or equal to 101.5 degrees Fahrenheit, and additional compatible Ebola Virus Disease symptoms Patient denies exposure to infectious person. Patient denies travel to an Ebola-affected area in the 21 days before illness onset. No symptoms or risks identified at this time. Initial Sepsis Screen: Does the patient meet any 2 criteria? No. Patient's initial sepsis screen is negative. Does the patient have a suspected source of infection? No. Patient's initial sepsis screen is negative. Risk Assessment: Do you want to hurt yourself or someone else? Patient reports no desire to harm self or others. Onset of symptoms was July 31, 2020. 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 - Social history:: Smoking status: Patient denies any tobacco usage or history of. Screenin:30 Abuse screen: Denies threats or abuse. Denies injuries from another. Nutritional jl7 screening: No deficits noted. Tuberculosis screening: No symptoms or risk factors identified. Fall Risk IV access (20 points). Total Villanueva Fall Scale indicates No Risk (0-24 pts). Assessment: 15:15 General: Appears in no apparent distress. uncomfortable, Behavior is calm, cooperative, jl7 appropriate for age. Pain: Complains of pain in left lower quadrant Pain currently is 8 out of 10 on a pain scale. Neuro: Level of Consciousness is awake, alert, obeys commands, Oriented to person, place, time, situation. Cardiovascular: Patient's skin is warm and dry. Respiratory: Airway is patent Respiratory effort is even, unlabored, Respiratory pattern is regular, symmetrical. : Reports vaginal bleeding that is bright red, with clots, heavy flow since July 05, 2020. Derm: Skin is pink, warm \T\ dry. 16:00 Reassessment: Patient appears in no apparent distress at this time. Patient and/or jl7 family updated on plan of care and expected duration. Pain level reassessed. Patient is alert, oriented x 3, equal unlabored respirations, skin warm/dry/pink. Patient denies pain at this time. Vital Signs: 14:02 BP 121 / 83; Pulse 63; Resp 18; Temp 98.8; Pulse Ox 100% on R/A; Weight 61.23 kg (R); em Height 5 ft. 6 in. (167.64 cm); Pain 8/10; 15:14 BP 110 / 74 Supine; Pulse 63; jl7 15:14 BP 113 / 82 Sitting; Pulse 65; jl7 15:14 BP 120 / 76 Standing; Pulse 69; jl7 16:19 BP 105 / 75; Pulse 59; Resp 15; Pulse Ox 99% ; jl7 14:02 Body Mass Index 21.79 (61.23 kg, 167.64 cm) em ED Course: 13:55 Patient arrived in ED. mr 14:05 Triage completed. em 14:06 Arm band placed on. em 14:51 Craolynn Kiser FNP-C is PHCP. kb 14:51 Eyal Mcclelland MD is Attending Physician. kb 14:52 Juan Zepeda RN is Primary Nurse. jl7 15:30 Patient has correct armband on for positive identification. Placed in gown. Bed in low jl7 position. Call light in reach. Side rails up X 1. Pulse ox on. NIBP on. 15:30 Initial lab(s) drawn, by me, sent to lab. Inserted saline lock: 20 gauge in right jl7 antecubital area, using aseptic technique. Blood collected. 16:02 US Transvaginal Study (Probe) In Process Unspecified. EDMS 16:55 No provider procedures requiring assistance completed. IV discontinued, intact, jl7 bleeding controlled, No redness/swelling at site. Pressure dressing applied. Administered Medications: 15:30 Drug: TORadol - (ketorolac) 15 mg Route: IVP; Site: right antecubital; jl7 15:45 Follow up: Response: No adverse reaction; Pain is decreased jl7 16:52 Drug: [place] (HYDROcodone-acetaminophen) (7.5 mg-325 mg) 1 tabs Route: PO; jl7 16:52 Follow up: Response: Medication administered at discharge. jl7 Outcome: 16:43 Discharge ordered by . kb 16:55 Discharged to home ambulatory, with family. jl7 16:55 Condition: stable 16:55 Discharge instructions given to patient, family, Instructed on discharge instructions, follow up and referral plans. medication usage, Demonstrated understanding of instructions, follow-up care, medications, Prescriptions given X 1. 16:56 Patient left the ED. jl7 Signatures: Dispatcher [employer] [facility]IN Carolynn Kiser, CONSTRUCTION SALES REPRESENTATIVE-C CONSTRUCTION SALES REPRESENTATIVE-Joanna RobertaSavi Marcel Dominguez, RN RN Juan Mascorro RN RN jl7 Corrections: (The following items were deleted from the chart) 16:19 15:14 BP 110 / 74 Supine; jl7 jl7 16:19 15:14 BP 113 / 82 Sitting; jl7 jl7 16:19 15:14 BP 120 / 76 Standing; jl7 jl7
--- NOTE | 2020-07-31 16:50 | RAD REPORT ---
EXAM DESCRIPTION: US - Transvaginal Study Probe - 07/31/2020 4:02 pm CLINICAL HISTORY: VAGINAL BLEEDING COMPARISON: None TECHNIQUE: Endovaginal sonography was performed. FINDINGS: Uterus is normal in size measuring 10.7 x 5.6 x 6.2 cm. A 2 cm subserosal fibroid is prese nt anterior fundus. Endometrium is 7 mm with no endometrial mass or polyp identifiable. No abnormal b lood or fluid in the endometrial cavity. No cervical canal abnormality seen. Left ovary and left adnexa are obscured by bowel. Mass of the left adnexae is not suspected. No blood or fluid in the cul de sac. A large 6 centimeter thin-walled septated cystic mass is present in the right adnexa. Adjacent ovaria n tissue is seen. Doppler evaluation shows blood flow in the ovarian tissue. IMPRESSION: Large 6 centimeter multi-septated cystic mass in the right adnexa. This is potentially a complex right ovarian/ paraovarian cyst. However, cystadenoma or more aggressive ovarian etiologies are not excluded. If there is no surgical intervention contemplated, continued close follow-up is needed with re-evaluation in 3 months.
[2020-07-31 17:04] VITALS: TEMP 98.8
[2020-07-31 17:06] VITALS: BP 105/75; O2SAT 99
[2020-07-31] MEDS ORDERED: HYDROCODONE/APAP 7.5/325 MG TAB ONE (17:06)
== END 2020-07-31 16:56 | disposition home or self-care (01) ==
LOC: ER 13:49
DX: D25.9 Leiomyoma of uterus, unspecified (principal); E03.9 Hypothyroidism, unspecified
CPT/HCPCS: 36415; 76830; 80048; 81003; 84443; 85025; 96374; 99284